=== PATIENT | male | born 1985 | race Asian ===

== ENCOUNTER 2017-01-25 18:27 | Emergency (ER) | payer BC ==
[~2017-01-25] VITALS: Ht 162.6 cm; Wt 65.7 kg
[2017-01-25 19:29] VITALS: BP 123/69
== END 2017-01-25 19:31 | disposition home or self-care (01) ==
LOC: ED 19:25
DX: L24.9 Irritant contact dermatitis, unspecified cause (principal); R21 Rash and other nonspecific skin eruption
CPT/HCPCS: 99283